=== PATIENT | male | born 1990 | race African-American/Black ===

== ENCOUNTER 2020-02-26 20:23 | Emergency (ER) | payer OTHER ==
[2020-02-26 20:52] LABS: Bilirubin Negative (Negative); Blood, Urine Negative (Negative); Clarity Clear (Clear); Glucose, Urine (Dipstick) Negative (Negative); Leukocyte Negative (Negative); Nitrite Negative (Negative); Protein, Urine (Dipstick) Negative (Neg-Trace)
[2020-02-26] MEDS ORDERED: Acetaminophen 500 MG TAB ONE (21:06)
[2020-02-26] MEDS ORDERED: Ibuprofen 800 MG TAB ONE (21:06)
== END 2020-02-26 21:10 | disposition home or self-care (01) ==
LOC: MADERS 20:23
DX: M54.6 Pain in thoracic spine (principal); J45.909 Unspecified asthma, uncomplicated; F17.210 Nicotine dependence, cigarettes, uncomplicated
CPT/HCPCS: 81003; 99283

== ENCOUNTER 2020-03-20 19:21 | Emergency (ER) | payer OTHER ==
[~2020-03-20 19:21] MED LIST: Sodium Chloride 0.9% 1,000 ML BAG ONE
[2020-03-20 19:49] LABS: #Basophils 0.1 thou/uL (0.0-0.2); #Lymphocytes 1.4 thou/uL (1.20-3.40); #Monocytes 0.6 thou/uL (0.11-0.59); #Neutrophils 3.4 thou/uL (1.40-6.50); %Basophils 1.8 % (0.0-1.0); %Eosinophils 0.5 % (0.0-10.0); %Monocytes 11.1 % (0.0-10.0); %Neutrophils 60.7 % (42.0-75.0); Hemoglobin 12.8 g/dL (14.0-18.0); Mean Corpuscular HGB CONC 32.4 g/dL (32.0-36.0); Mean Corpuscular Hemoglobin 31.1 pg (27.0-31.0); Mean Platelet Volume 5.7 fL (7.4-10.4); Platelet Count 262 thou/uL (130-400); RBC Distribution Width 11.8 % (11.5-14.5); Red Blood Cell (RBC) Count 4.11 mill/uL (4.70-6.10); White Blood Cell (WBC) Count 5.5 thou/uL (4.8-10.8)
[2020-03-20 19:53] LABS: Prothrombin Time 13.1 sec (12.0-14.7)
--- NOTE | 2020-03-20 20:00 | CT ---
CT OF THE PELVIS WITHOUT IV CONTRAST INDICATION: Trauma COMPARISON: None FINDINGS: Pelvis: Small and large bowel: Unopacified large and small bowel appear within normal limits. Appendix:Normal Bladder: The bladder is deviated to the right by 2 prominent extraperitoneal hematomas. One measures 3.8 cm and one measures 6.8 cm on image 56 of series 3 within the left hemipelvis. Rectal and perirectal soft tissues:Normal. Reproductive structures: Normal. Free fluid in pelvis: There is mild free fluid in the pelvis. Lymphadenopathy pelvis: No lymphadenopathy is evident. Osseous structures: There is diastases of the symphysis pubis measuring 2.2 cm. There is vacuum disc phenomenon within the SI joints. 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 There is anterior abdominal wall contusion involving the lower midline abdominal wall. Soft tissues:There are edematous changes seen involving the mons pubis with bilateral hydroceles with in the scrotum. IMPRESSION: 1. Traumatic diastases of the symphysis pubis of 2.2 cm with lower midline anterior abdominal wall co ntusion. There is also 2 separate extraperitoneal hematomas within the left hemipelvis and anterior pelvis. The anterior pelvic hematoma measures 3.8 cm. The left hemipelvic hematoma measures 6.8 cm. 2. Bilateral scrotal hydroceles.
[2020-03-20 20:04] LABS: ALT (SGPT) 17 U/L (8-55); AST (SGOT) 25 U/L (5-34); Albumin 3.8 g/dL (3.5-5.0); Alkaline Phosphatase 78 U/L (40-110); Anion Gap 13 mmol/L (10-20); BUN (Urea Nitrogen) 12 mg/dL (8.9-20.6); Bilirubin, Total 0.8 mg/dL (0.2-1.2); Calc. Creatinine Clearance 0 mL/min (70-130); Calcium 8.5 mg/dL (7.8-10.44); Carbon Dioxide 26 mmol/L (22-29); Chloride 108 mmol/L (98-107); Estimated GFR-MDRD 74; Globulin 2.4 g/dL (2.4-3.5); Glucose 120 mg/dL (70-105); Potassium 3.9 mmol/L (3.5-5.1); Protein, Total 6.2 g/dL (6.0-8.3); Sodium 143 mmol/L (136-145)
== END 2020-03-20 20:34 | disposition short-term general hospital (02) ==
LOC: MADERS 19:21
DX: S32.502A Unspecified fracture of left pubis, initial encounter for closed fracture (principal); F17.210 Nicotine dependence, cigarettes, uncomplicated; J45.909 Unspecified asthma, uncomplicated; V80.010A Animal-rider injured by fall from or being thrown from horse in noncollision accident, initial encounter
CPT/HCPCS: 72192; 80053; 85025; 85610; 96360; J7050

== ENCOUNTER 2020-06-25 17:24 | Emergency (ER) | payer OTHER, SELFPAY | END 2020-06-25 17:51 | disposition home or self-care (01) | LOC: MADERS 17:24 | DX: S16.1XXA Strain of muscle, fascia and tendon at neck level, initial encounter (principal); F17.210 Nicotine dependence, cigarettes, uncomplicated; J45.909 Unspecified asthma, uncomplicated; X58.XXXA Exposure to other specified factors, initial encounter | CPT/HCPCS: 99283 ==

== ENCOUNTER 2021-01-17 18:39 | Emergency (ER) | payer BC, SELFPAY | END 2021-01-17 21:43 | disposition home or self-care (01) | LOC: MADERS 18:39 | DX: S93.501A Unspecified sprain of right great toe, initial encounter (principal); J45.909 Unspecified asthma, uncomplicated; F17.210 Nicotine dependence, cigarettes, uncomplicated; X58.XXXA Exposure to other specified factors, initial encounter ==

== ENCOUNTER 2021-09-27 08:33 | Emergency (ER) | payer BC, OTHER ==
[2021-09-27] MEDS ORDERED: Ibuprofen 600 MG TAB ONE (09:05)
== END 2021-09-27 09:49 | disposition home or self-care (01) ==
LOC: MADERS 08:33
DX: R50.9 Fever, unspecified (principal); M79.10 Myalgia, unspecified site; J45.909 Unspecified asthma, uncomplicated; F17.210 Nicotine dependence, cigarettes, uncomplicated
CPT/HCPCS: 87804; 99283

== ENCOUNTER 2021-10-03 16:24 | Emergency (ER) | payer BC ==
[2021-10-04 17:38] LABS: SARS-CoV-2 PCR by NAA DETECTED (NotDetected)
== END 2021-10-03 17:10 | disposition home or self-care (01) ==
LOC: MADERS 16:24
DX: U07.1 COVID-19 (principal); J45.909 Unspecified asthma, uncomplicated; F17.210 Nicotine dependence, cigarettes, uncomplicated
CPT/HCPCS: 99406; U0003; U0005

== ENCOUNTER 2023-10-01 04:04 | Emergency (ER) | payer BC, OTHER ==
[2023-10-01 04:25] LABS: Bilirubin Negative (Negative); Blood, Urine Moderate (Negative); Clarity Turbid (Clear); Glucose, Urine (Dipstick) Negative (Negative); Ketone, Urine Trace mg/dL (Negative); Leukocyte Moderate (Negative); Nitrite Negative (Negative); Protein, Urine (Dipstick) 100 mg/dL (Neg-Trace)
[2023-10-01 04:31] LABS: Bacteria/HPF 3+ HPF (None Seen); CAUTI Indications for Culture Dysuria,urgency,freq; Specific Gravity, Urine 1.028 (1.002-1.036); WBC/HPF Greater than 50 HPF (0-3)
[2023-10-01 04:32] LABS: Urine Culture Reflex Yes Yes
[2023-10-01] MEDS ORDERED: cefTRIAXone (ROCEPHIN) 1 GM VIAL ONE (04:57)
[2023-10-01] MEDS ORDERED: Lidocaine 1% PF 5 ML VIAL ONE (04:57)
[2023-10-01] MEDS ORDERED: Azithromycin 250 MG TAB ONE (05:09)
[2023-10-01 21:41] LABS: Chlam.trachomatis by PCR,Urine Not Detected (NotDetected); GC N.gonorrhoeae PCR,UrineVOID DETECTED (NotDetected)
== END 2023-10-01 05:22 | disposition home or self-care (01) ==
LOC: MADERS 04:04
DX: N39.0 Urinary tract infection, site not specified (principal); F17.210 Nicotine dependence, cigarettes, uncomplicated; Z11.3 Encounter for screening for infections with a predominantly sexual mode of transmission
CPT/HCPCS: 81001; 87086; 87491; 87591; J0696

== ENCOUNTER 2024-01-25 15:53 | Emergency (ER) | payer OTHER ==
[2024-01-25] MEDS ORDERED: Ketorolac Tromethamine 10 MG TAB ONE (16:33)
[2024-01-25] MEDS ORDERED: Doxycycline 100 MG CAP ONE (16:34)
== END 2024-01-25 16:37 | disposition home or self-care (01) ==
LOC: MADERS 15:53
DX: L73.2 Hidradenitis suppurativa (principal); F17.210 Nicotine dependence, cigarettes, uncomplicated
CPT/HCPCS: 99283